=== PATIENT | male | born 1955 | race African-American/Black ===

== ENCOUNTER 2016-11-14 03:09 | Emergency (ER) | payer OTHER | END 2016-11-14 05:02 | disposition home or self-care (01) | LOC: ER 03:09 | DX: G95.29 Other cord compression (principal); M51.36 Other intervertebral disc degeneration, lumbar region; R20.0 Anesthesia of skin; M48.06 Spinal stenosis, lumbar region; Z79.899 Other long term (current) drug therapy; Z87.891 Personal history of nicotine dependence | CPT/HCPCS: 70450; 80047; 85014 ==